=== PATIENT | male | born 1995 | race Caucasian/White ===

== ENCOUNTER 2021-11-04 03:17 | Emergency (ER) | payer OTHER ==
[~2021-11-04] VITALS: Ht 177.8 cm; Wt 124.7 kg
[2021-11-04 03:22] VITALS: BP_SYST 153
--- NOTE | 2021-11-04 03:27 | NUR ---
PATIENT STATES HE HAS RIGHT TESTICULAR PAIN AND NECK PAIN AND RIGHT KIDNEY PAIN X ONE DAY. STATES IT'S AN EMERGENCY RIGHT NOW BECAUSE HE IS IN PAIN. PATIENT ALSO STATES "I AM ALLERGIC TO LIKE ALL MEDICATIONS" WHEN ASKED FOR NAMES OF ANY MEDICATIONS, HE STATED, "I AM ALLERGIC TO LIKE SHOTS AND STUFF". EXPLAINED TO PATIENT THAT WE NEED A LIST OF MEDICATIONS THAT HE ACTUALLY HAS AN ALLERGIC REACTION TO AND PATIENT IS UNABLE TO LIST ANY MEDICATION NAMES AT THIS TIME.
--- NOTE | 2021-11-04 03:45 | NUR ---
Dr. Tyler at bedside with patient for evaluation.
--- NOTE | 2021-11-04 04:05 | NUR ---
Pt states he had an episode of diarrhea right now and he is experiencing abd pain. Dr. Tyler made aware.
--- NOTE | 2021-11-04 04:23 | NUR ---
Urine collected and sent to lab.
[2021-11-04 04:30] VITALS: BP_SYST 153
[2021-11-04 04:31] LABS: BILIRUBIN,URINE NEGATIVE (NEGATIVE); BLOOD, URINE NEGATIVE (NEGATIVE); CLARITY/URINE CLEAR (CLEAR); COLOR,URINE YELLOW (YELLOW); GLUCOSE,URINE NEGATIVE (NEGATIVE); KETONES,URINE NEGATIVE (NEGATIVE); LEUKOCYTE ESTERASE ,URINE NEGATIVE (NEGATIVE); NITRITE, URINE NEGATIVE (NEGATIVE); PROTEIN URINE NEGATIVE (NEGATIVE); UROBILINOGEN,URINE 0.2 (0.2-1.0)
[2021-11-04] MEDS ORDERED: CIPR250T4 PO (04:59)
[2021-11-04] MEDS ORDERED: NAPR-686 PO (04:59)
[2021-11-04] MEDS ORDERED: CIPROFLOXACIN HCL 500 MG TABLET PO ONE (05:00)
[2021-11-04] MEDS ORDERED: IBUPROFEN 600 MG TABLET PO ONE (05:00)
--- NOTE | 2021-11-04 05:01 | NUR ---
Pt reporting shoulder pain now. Dr. Tyler made aware.
--- NOTE | 2021-11-04 05:22 | NUR ---
Patient given written and verbal discharge instructions and verbalizes understanding. ER MD discussed with patient the results and treatment provided. Patient in stable condition. ID arm band removed. IV catheter removed intact and dressing applied, no active bleeding. Rx of CIPRO, NAPROXEN given. Patient educated on pain management and to follow up with PMD. Pain Scale . Opportunity for questions provided and answered. Medication side effect fact sheet provided.
== END 2021-11-04 05:21 | disposition home or self-care (01) ==
LOC: SED 03:17
DX: N45.1 Epididymitis (principal); N50.811 Right testicular pain; Z79.899 Other long term (current) drug therapy
CPT/HCPCS: 81003; 99283